=== PATIENT | male | born 1985 | race Caucasian/White ===

== ENCOUNTER 2018-10-09 19:58 | Emergency (ER) | payer SELFPAY ==
[~2018-10-09] VITALS: Ht 172.7 cm; Wt 55.0 kg
[2018-10-09] MEDS ORDERED: SODIUM CHLORIDE 0.9% 1,000 ML IV ONE (20:58)
[2018-10-09] MEDS ORDERED: ONDANSETRON HCL 4MG/2ML INJ IV STA (20:58)
[2018-10-09 21:12] LABS: BASOPHILS % 0.3 % (0.0-2.0); EOSINOPHILS % 0.1 % (0.0-5.0); HEMATOCRIT. 44.9 % (42.0-52.0); HEMOGLOBIN. 15.8 g/dL (14.0-18.0); LYMPHOCYTES % 8.9 % (20.0-50.0); MEAN CORPUSCULAR HEMOGLOBIN 32.2 pg (28.0-32.0); MEAN CORPUSCULAR VOLUME 91.6 fL (80.0-94.0); MEAN PLATELET VOLUME 8.5 fl (7.4-10.4); MONOCYTES % 5.6 % (2.0-8.0); NEUTROPHILS % 85.1 % (40.0-76.0); PLATELET 242 x1000/uL (130-400); RED CELL DISTRIBUTION WIDTH 13.3 % (11.6-14.6)
[2018-10-09 21:18] LABS: CHLORIDE 102 mEq/L (98-107)
[2018-10-09 21:22] LABS: ETHANOL BLOOD < 10 mg/dL
[2018-10-09 21:26] LABS: CREATINE KINASE 251 IU/L (39-308)
[2018-10-09 21:29] LABS: CREATINE KINASE MB FRACTION 1.6 ng/mL (0.5-3.6)
[2018-10-09 22:51] LABS: *AMPHETAMINES SCREEN URINE PRESUMTIVE POSITIVE (NEGATIVE); CANNABINOID URINE SCREEN NEGATIVE (NEGATIVE)
[2018-10-09 22:52] LABS: *BARBITURATES SCREEN URINE NEGATIVE (NEGATIVE); *BENZODIAZEPINES SCREEN URINE NEGATIVE (NEGATIVE); *COCAINE SCREEN URINE NEGATIVE (NEGATIVE); METHADONE URINE SCREEN NEGATIVE (NEGATIVE); OPIATES URINE SCREEN NEGATIVE (NEGATIVE); PHENCYCLIDINE URINE SCREEN NEGATIVE (NEGATIVE)
[2018-10-09 23:14] VITALS: BP 104/60
== END 2018-10-10 00:35 | disposition home or self-care (01) ==
LOC: ER 19:58
DX: T43.621A Poisoning by amphetamines, accidental (unintentional), initial encounter (principal); N23 Unspecified renal colic; R06.4 Hyperventilation; R10.13 Epigastric pain; Z86.73 Personal history of transient ischemic attack (TIA), and cerebral infarction without residual deficits; Y92.89 Other specified places as the place of occurrence of the external cause
CPT/HCPCS: 36415; 74176; 80053; 80305; 80320; 82550; 82553; 83690; 84484; 85025; 93005; 96374; 99284; J2405; J7030; Z7610; G0480

== ENCOUNTER 2018-11-17 10:49 | Emergency (ER) | payer SELFPAY ==
[~2018-11-17] VITALS: Ht 177.8 cm; Wt 66.0 kg
[2018-11-17 10:59] VITALS: BP 135/77
== END 2018-11-17 16:14 | disposition left against medical advice (07) ==
LOC: ER 10:49
DX: R53.1 Weakness (principal); R42 Dizziness and giddiness; Z53.21 Procedure and treatment not carried out due to patient leaving prior to being seen by health care provider

== ENCOUNTER 2018-12-03 01:27 | Emergency (ER) | payer SELFPAY ==
[~2018-12-03] VITALS: Ht 175.3 cm; Wt 60.0 kg
[2018-12-03 02:47] LABS: BASOPHILS % 1.5 % (0.0-2.0); CHLORIDE 104 mEq/L (98-107); EOSINOPHILS % 5.2 % (0.0-5.0); HEMATOCRIT. 39.9 % (42.0-52.0); HEMOGLOBIN. 13.8 g/dL (14.0-18.0); LYMPHOCYTES % 51.6 % (20.0-50.0); MEAN CORPUSCULAR HEMOGLOBIN 32.6 pg (28.0-32.0); MEAN CORPUSCULAR VOLUME 94.1 fL (80.0-94.0); MEAN PLATELET VOLUME 8.1 fl (7.4-10.4); MONOCYTES % 9.2 % (2.0-8.0); NEUTROPHILS % 32.5 % (40.0-76.0); PLATELET 247 x1000/uL (130-400); RED BLOOD CELL COUNT 4.24 mill/uL (4.7-6.1); RED CELL DISTRIBUTION WIDTH 13.8 % (11.6-14.6)
[2018-12-03 02:49] LABS: PROTHROMBIN TIME 10.7 sec (9.6-11.0)
[2018-12-03 03:26] LABS: CLARITY URINE CLEAR (CLEAR); COLOR URINE YELLOW (YELLOW); KETONES URINE NEGATIVE (NEGATIVE); LEUKOCYTE ESTERASE URINE NEGATIVE (NEGATIVE); NITRITE URINE NEGATIVE (NEGATIVE); OCCULT BLOOD URINE NEGATIVE (NEGATIVE); PH URINE 7.5 (4.5-8.0); PROTEIN URINE NEGATIVE (NEGATIVE); SPECIFIC GRAVITY URINE 1.002 (1.005-1.030); UROBILINOGEN URINE 0.2 E.U./dL (0.2-1.0)
[2018-12-03 05:14] VITALS: BP 100/63
[2018-12-03 05:43] LABS: *AMPHETAMINES SCREEN URINE PRESUMTIVE POSITIVE (NEGATIVE); *BARBITURATES SCREEN URINE NEGATIVE (NEGATIVE); *BENZODIAZEPINES SCREEN URINE NEGATIVE (NEGATIVE); *COCAINE SCREEN URINE NEGATIVE (NEGATIVE); CANNABINOID URINE SCREEN NEGATIVE (NEGATIVE); METHADONE URINE SCREEN NEGATIVE (NEGATIVE); OPIATES URINE SCREEN NEGATIVE (NEGATIVE)
[2018-12-03 05:45] LABS: PHENCYCLIDINE URINE SCREEN NEGATIVE (NEGATIVE)
== END 2018-12-03 05:17 | disposition home or self-care (01) ==
LOC: ER 01:27
DX: R20.2 Paresthesia of skin (principal); F15.10 Other stimulant abuse, uncomplicated; F17.200 Nicotine dependence, unspecified, uncomplicated
CPT/HCPCS: 36415; 80305; 99283